=== PATIENT | male | born 1940 | race Caucasian/White ===

== ENCOUNTER 2022-05-14 18:15 | Inpatient (IN) | payer MEDICARE ==
[2022-05-14 18:36] LABS: #Lymphocytes 0.4 thou/uL (1.20-3.40); #Monocytes 0.6 thou/uL (0.11-0.59); #Neutrophils 9.8 thou/uL (1.40-6.50); %Eosinophils 0.1 % (0.0-10.0); %Lymphocytes 3.8 % (21.0-51.0); %Monocytes 5.3 % (0.0-10.0); %Neutrophils 90.9 % (42.0-75.0); Hemoglobin 13.1 g/dL (14.0-18.0); Mean Corpuscular HGB CONC 34.1 g/dL (32.0-36.0); Mean Corpuscular Hemoglobin 32.2 pg (27.0-31.0); Mean Corpuscular Volume 94.5 fL (78.0-98.0); Mean Platelet Volume 8.6 fL (7.4-10.4); Platelet Count 128 thou/uL (130-400); RBC Distribution Width 12.3 % (11.5-14.5); Red Blood Cell (RBC) Count 4.07 mill/uL (4.70-6.10); White Blood Cell (WBC) Count 10.8 thou/uL (4.8-10.8)
[2022-05-14 18:59] LABS: ALT (SGPT) 12 U/L (8-55); AST (SGOT) 20 U/L (5-34); Albumin 3.5 g/dL (3.4-4.8); Alkaline Phosphatase 81 U/L (40-110); Anion Gap 14 mmol/L (10-20); BUN (Urea Nitrogen) 13 mg/dL (8.4-25.7); Bilirubin, Total 1.4 mg/dL (0.2-1.2); Calc. Creatinine Clearance 0 mL/min (70-130); Calcium 8.4 mg/dL (7.8-10.44); Carbon Dioxide 21 mmol/L (23-31); Chloride 97 mmol/L (98-107); Estimated GFR 87; Globulin 2.3 g/dL (2.4-3.5); Glucose 158 mg/dL (83-110); Potassium 4.1 mmol/L (3.5-5.1); Protein, Total 5.8 g/dL (5.8-8.1); Sodium 128 mmol/L (136-145)
[2022-05-14 19:17] LABS: Prothrombin Time 13.6 sec (12.0-14.7)
[2022-05-14 19:18] LABS: PTT 29.6 sec (22.9-36.1)
[2022-05-14] MEDS ORDERED: niCARdipine 25 MG/10 ML VIAL ONE (19:23)
[2022-05-14 19:51] LABS: Bilirubin Negative (Negative); Blood, Urine Negative (Negative); Clarity Clear (Clear); Glucose, Urine (Dipstick) Normal (Negative); Ketone, Urine 20 mg/dL (Negative); Leukocyte Negative Leu/uL (Negative); Nitrite Negative (Negative); Protein, Urine (Dipstick) 10 mg/dL (Neg-Trace); Specific Gravity, Urine 1.021 (1.002-1.036); pH, Urine 6.5 (5.0-9.0)
[2022-05-14] MEDS ORDERED: Hyoscyamine Sulfate SL 0.125 mg Tablet SL PRN (20:25)
[2022-05-14] MEDS ORDERED: diphenhydrAMINE 25 MG CAP PO PRN (20:25)
[2022-05-14] MEDS ORDERED: chlorproMAZINE HCl 50 MG/2 ML AMP IM PRN (20:25)
[2022-05-14] MEDS ORDERED: Ondansetron PF 4 MG/2 ML Vial IVP PRN (20:25)
[2022-05-14] MEDS ORDERED: Zolpidem Tartrate 5 MG TAB PO PRN (20:25)
[2022-05-14] MEDS ORDERED: Acetaminophen 325 MG TAB PO PRN (20:25)
[2022-05-14] MEDS ORDERED: Morphine 20 MG/ML Oral Solution (ROXANOL) SL PRN (20:25)
[2022-05-14] MEDS ORDERED: Promethazine HCl 25 MG SUPP PR PRN (20:25)
[2022-05-14] MEDS ORDERED: Lorazepam 2 MG/ML VIAL SLOW IVP PRN (20:25)
[2022-05-14] MEDS ORDERED: Milk Of Magnesia 30 ML UDCUP PO PRN (20:25)
[2022-05-14] MEDS ORDERED: Morphine 2 MG/ML VIAL SLOW IVP PRN (20:25)
[2022-05-14] MEDS ORDERED: Loperamide HCl 2 MG CAP PO PRN (20:25)
[2022-05-14] MEDS ORDERED: Senokot S 8.6-50 MG TAB PO PRN (20:25)
[2022-05-14] MEDS ORDERED: Lorazepam 1 MG TAB PO PRN (20:25)
[2022-05-14] MEDS ORDERED: diphenhydrAMINE 50 MG/ML VIAL IVP PRN (20:25)
[2022-05-14] MEDS ORDERED: Scopolamine 1.5 mg/72 hour Patch TD PRN (20:25)
[2022-05-14] MEDS ORDERED: Ondansetron ODT 4 MG TAB PO PRN (20:25)
[2022-05-14 21:08] LABS: SARS-CoV-2 NAA Rapid Test Not Detected (NotDetected)
[2022-05-14] MEDS ORDERED: hydrALAZINE 20 MG/ML VIAL SLOW IVP PRN (22:19)
[2022-05-14 23:09] VITALS: BMI 21.3
[2022-05-14 23:17] LABS: Lactic Acid 1.7 mmol/L (0.5-2.2)
[2022-05-15] MEDS: Acetaminophen 650 MG Suppository PR PRN ×2 (08:26→12:10)
[2022-05-15] MEDS ORDERED: levETIRAcetam 500 MG/5 ML VIAL SLOW IVP SCH (09:00)
[2022-05-15 12:16] VITALS: BP 177/88
[2022-05-15 13:23] VITALS: TEMP 98.5
[2022-05-15] MEDS ORDERED: Morphine 20 MG/ML Oral Solution (ROXANOL) SL PRN (13:30)
[2022-05-15] MEDS ORDERED: Scopolamine 1.5 mg/72 hour Patch TD SCH (14:00)
== END 2022-05-15 16:38 | disposition hospice, inpatient (51) | DRG 64 ==
LOC: ERS 18:15 → T4-B 20:25
PROVIDERS: ADMIT Family Medicine; ATTEND Family Medicine
DX: I62.9 Nontraumatic intracranial hemorrhage, unspecified (principal); G93.41 Metabolic encephalopathy; E87.1 Hypo-osmolality and hyponatremia; Z66 Do not resuscitate; Z51.5 Encounter for palliative care; I10 Essential (primary) hypertension; D64.9 Anemia, unspecified; Z20.822 Contact with and (suspected) exposure to COVID-19; D69.6 Thrombocytopenia, unspecified
CPT/HCPCS: 36415; 51702; 70450; 71045; 80053; 81003; 83605; 85025; 85610; 85730; 87040; 87077; 87086; 87149; 93005; J1953; J2270

== ENCOUNTER 2022-05-15 17:10 | Inpatient (IN) | payer OTHER ==
[2022-05-15] MEDS ORDERED: Bisacodyl 10 MG SUPP PR PRN (17:29)
[2022-05-15] MEDS ORDERED: Haloperidol Lactate 5 MG/ML VIAL SLOW IVP PRN (17:30)
[2022-05-15] MEDS ORDERED: Promethazine HCl 25 MG SUPP PR PRN (17:30)
[2022-05-15] MEDS ORDERED: Lorazepam 1 MG TAB PO PRN (17:30)
[2022-05-15] MEDS ORDERED: Scopolamine 1.5 mg/72 hour Patch TOP PRN (17:30)
[2022-05-15] MEDS ORDERED: diphenhydrAMINE 50 MG/ML VIAL IVP PRN (17:30)
[2022-05-15] MEDS ORDERED: Lorazepam (BATCHED) 2 MG/ML SYR SLOW IVP PRN (17:30)
[2022-05-15] MEDS ORDERED: Ondansetron PF 4 MG/2 ML Vial IVP PRN (17:30)
[2022-05-15] MEDS ORDERED: Acetaminophen 650 MG Suppository PR PRN (17:30)
[2022-05-15] MEDS: Morphine 2 MG/ML VIAL SLOW IVP PRN ×3 (18:13→22:24)
[2022-05-15] MEDS ORDERED: levETIRAcetam 500 MG/5 ML VIAL SLOW IVP SCH (21:00)
[2022-05-15] MEDS ORDERED: Diazepam 10 MG/2 ML SYRINGE IVP PRN (22:21)
[2022-05-15 23:19] VITALS: BP 186/88; TEMP 98.6
== END 2022-05-16 01:50 | disposition expired | DRG 951 ==
LOC: T4-B 17:10
PROVIDERS: ADMIT Family Medicine; ATTEND Family Medicine
DX: Z51.5 Encounter for palliative care (principal); I61.9 Nontraumatic intracerebral hemorrhage, unspecified; G93.41 Metabolic encephalopathy; I10 Essential (primary) hypertension; Z66 Do not resuscitate
CPT/HCPCS: J1953; J2060; J2270; J3360